=== PATIENT | male | born 1945 | race Caucasian/White ===

== ENCOUNTER 2022-04-14 09:59 | Inpatient (IN) | payer MEDICARE, BC ==
[2022-04-14] VITALS (15 sets, daily range): BP systolic 125–190; BP diastolic 65–105
[~2022-04-14] VITALS: Ht 185.4 cm; Wt 103.0 kg
[2022-04-14] MEDS ORDERED: diphenhydrAMINE 25mg capsule PO PRN (10:50)
[2022-04-14] MEDS ORDERED: SIMV-45 PO (11:00)
[2022-04-14] MEDS ORDERED: RIVA20TA PO (11:00)
[2022-04-14] MEDS ORDERED: VERA240C3 PO (11:00)
[2022-04-14] MEDS ORDERED: ALBU90AE INH (11:00)
[2022-04-14] MEDS ORDERED: LEVO50TA8 PO (11:00)
[2022-04-14 11:15] LABS: BASOPHILS # (AUTO) 0.1 X10'3 (0-0.2); BASOPHILS % (AUTO) 1.2 % (0-1); EOSINOPHILS # (AUTO) 0.4 X10'3 (0-0.9); EOSINOPHILS % (AUTO) 8.6 % (0-6); HEMATOCRIT 46.4 % (42.0-52.0); HEMOGLOBIN 15.6 g/dl (14.0-17.9); LYMPHOCYTES # (AUTO) 1.1 X10'3 (1.1-4.8); LYMPHOCYTES % (AUTO) 22.8 % (21-51); MEAN CORPUSCULAR HEMOGLOBIN 31.5 PG (27.0-31.0); MEAN CORPUSCULAR HGB CONC 33.6 g/dL (33.0-36.5); MEAN CORPUSCULAR VOLUME 93.7 FL (78-98); MEAN PLATELET VOLUME 7.8 FL (7.4-10.4); MONOCYTES # (AUTO) 0.3 X10'3 (0-0.9); MONOCYTES % (AUTO) 6.2 % (2-12); NEUTROPHILS # (AUTO) 3.1 X10'3 (1.8-7.7); NEUTROPHILS % (AUTO) 61.2 % (42-75); PLATELET COUNT 182 X10'3 (140-440); RED BLOOD COUNT 4.95 X10'6 (4.70-6.10); RED CELL DISTRIBUTION WIDTH 13.6 % (11.5-14.5)
[2022-04-14 11:18] LABS: ANION GAP 8 (8-16); BLOOD UREA NITROGEN 17 MG/DL (7-18); CALCIUM 9.2 MG/DL (8.5-10.1); CHLORIDE 106 MMOL/L (99-107); CREATININE 1.06 MG/DL (0.60-1.10); GLUCOSE 92 MG/DL (70-104); POTASSIUM 4.6 MMOL/L (3.5-5.1); SODIUM 140 MMOL/L (135-145); TOTAL CARBON DIOXIDE 26.5 MMOL/L (24-32); eGFR 68 ML/MIN
[2022-04-14] MEDS ORDERED: verapamil 2.5 mg/ml inj IV ONE (12:24)
[2022-04-14] MEDS ORDERED: nitroGLYCERIN-Tridil 50MG/D5W 250 ML IV ONE (12:24)
[2022-04-14] MEDS ORDERED: fentaNYL/PF 50MCG/1 ML 2ML syringe ONE (12:24)
[2022-04-14] MEDS ORDERED: midazolam 1 mg/ML 2ml injection ONE ×3 (12:24→21:44)
[2022-04-14] MEDS ORDERED: LIDOcaine 1% 30ml preserv. free vial ONE (12:25)
[2022-04-14] MEDS ORDERED: heparin 1,000unit/ml 10ml vial 10 ML ONE (12:25)
[2022-04-14] MEDS ORDERED: iohexol 350 MG/ML 50ML vial IV ONE ×2 (13:30→13:51)
[2022-04-14] MEDS ORDERED: clopidogrel 300mg tablet ONE (13:57)
[2022-04-14] MEDS ORDERED: HYDROcodone/acetaminophen 5mg/325mg tablet PO PRN (16:00)
--- NOTE | 2022-04-14 18:45 | NUR ---
Notified Dr. Hall patient in 09/04 pain to right groin and abdomen. Patient pale and diaphoretic. Groin site stable with no hematoma. Patient reports no flank pain. Blood glucose 112. New order for toradol 15mg IV once. Will continue to monitor patient. Addendum: 04/14/22 at 1920 by Tiffany Godoy RN Blood glucose 116.
[2022-04-14] MEDS ORDERED: ketorolac tromethamine 15mg/ml inj. IV ONE (18:50)
[2022-04-14] MEDS ORDERED: ondansetron/PF 4mg/2ml inj IV PRN ×2 (19:20→21:40)
--- NOTE | 2022-04-14 20:00 | NUR ---
Notified Dr. Hall that patient is still reporting pain 10/10 to right groin. No hematoma noted to procedure site. Right abdomen firm. New order for CT abdomen/pelvis with contrast. Patient vital signs stable. Will continue to monitor patient.
[2022-04-14] MEDS ORDERED: IOHEXOL 300 MG/ML 30ML INFUS..BTL IV ONE (20:11)
--- NOTE | 2022-04-14 20:45 | NUR ---
Dr. Hall present on short stay to evaluate patient and review CT images. Patient will go to OR with Dr. Souza for surgery SUMA. Patient BP 146/95 and HR in 100's
[2022-04-14] MEDS ORDERED: heparin 10,000 units/1 ML INJ ONE (21:35)
[2022-04-14] MEDS ORDERED: LIDOcaine 1% (10mg/ml) 2ml vial ONE ×2 (21:35→22:42)
[2022-04-14] MEDS ORDERED: meperidine/PF 25mg/ml syringe IV PRN ×3 (21:40)
[2022-04-14] MEDS ORDERED: morphine 4 MG/ML inj SYRINge IV PRN (21:40)
[2022-04-14] MEDS ORDERED: morphine 2 MG/ML inj. syringe IV PRN (21:40)
[2022-04-14] MEDS ORDERED: labetalol 20mg/4ml (5mg/ml) syringe IV PRN (21:40)
[2022-04-14] MEDS ORDERED: ringers solution, lacted 1,000 ML IV SCH (21:40)
[2022-04-14] MEDS ORDERED: proCHLORperazine 10 MG/2 ml inj IV PRN (21:40)
[2022-04-14] MEDS ORDERED: hydrALAZINE 20mg/ml inj. IV PRN (21:40)
--- NOTE | 2022-04-14 21:48 | NUR ---
Patient to OR.
[2022-04-14] MEDS ORDERED: dexamethasone sod phosphate 4mg/ml inj. ONE (21:50)
[2022-04-14] MEDS ORDERED: sevoflurane 250ml liquid IH ONE (21:50)
[2022-04-14] MEDS ORDERED: ondansetron/PF 4mg/2ml inj ONE (21:50)
[2022-04-14] MEDS ORDERED: fentaNYL /PF 50mcg/ml 5ml ampule ONE (22:29)
[2022-04-14] MEDS ORDERED: ceFAZolin 1000mg inj ONE ×3 (22:42)
[2022-04-14] MEDS ORDERED: LIDOcaine 2% (20mg/ml) 5ml vial ONE (22:42)
[2022-04-14] MEDS ORDERED: rocuronium 10mg/ml inj IV ONE (22:42)
[2022-04-14] MEDS ORDERED: phenylephrine 10mg/ml inj. ONE (22:42)
[2022-04-14] MEDS ORDERED: propofol inj 20 ML IV ONE (22:42)
[2022-04-14] MEDS ORDERED: FENTANYL CITRATE/D5W/PF 100 ML IV PRN (22:55)
[2022-04-14] MEDS ORDERED: fentaNYL/PF 50MCG/1 ML 2ML syringe IV PRN (22:55)
--- NOTE | 2022-04-14 23:16 | NUR ---
Report called to ALBERT Godinez in ICU. All questions answered.
--- NOTE | 2022-04-14 23:58 | NUR ---
Received from OR via BED , accompanied by Anesthesiologist DR EMERY and report given by Anesthesiolgist. ARTLINE LEFT WRIST, PIV LEFT 20G WITH LR @ 100, CL WITH PROPOFOL AT 10MCG/HR, RIGHT GROIN HAS KERLIK PACKING WITH INTERMITTENT RADHA, ABD AND TAPE, NICHOLS TO GRAVITY, CLEAR YELLOW URINE, SCD'S, VENTFIO2 101 AND PEEP OF 5, DOPPLER DORSAL PEDAL PULSES, TYLOENOL IV RUNNING. Addendum: 04/15/22 at 0029 by Natalie Corrigan RN Amended: Links added.
[2022-04-15] VITALS (41 sets, daily range): BP systolic 71–136; BP diastolic 44–79
[2022-04-15] MEDS: acetaminophen 1,000mg/100ml IV 100 ML IV PRN ×2 (00:02)
--- NOTE | 2022-04-15 00:28 | NUR ---
Report called to receiving nurse. Transferred via BED FROM THE OR Belongings [NO PERSONAL BELONINGS WITH PT. Special Issues communicated to receiving nurse MAC RN. PT IS SEDATED, NICHOLS TO GRAVITY, CL WITH PROPOFOL, PIV PATENT, NICHOLS TO GRAVITY, PT VENTED, VSS, DISTAL PEDAL PULSES WITH DOPPLER, SCD'S, PT MEETS DISCHARGE CRITERA.
[2022-04-15 00:30] LABS: ABG BASE EXCESS -8.3 mmol/L (-2.0-2.0); ABG HCO3 17.7 mmol/L (22.0-26.0); ABG OXYGEN SATURATION 99.5 % (94-97); ABG PCO2 (T) 35.2 mmHg (35.0-48.0); ABG PO2 (T) 452.6 mmHg (75.0-100.0); FCOHb 0.3 % (0.0-3.9); FMetHb 0.4 % (0.0-1.5); FO2Hb 98.8 % (94-97); PATIENT TEMPERATURE 35.3; PEEP 5 cm H2O; RESPIRATORY RATE 12 b/min; TIDAL VOLUME 600 mL; TOTAL HEMOGLOBIN 13.2 G/dl (14.0-18.0)
--- NOTE | 2022-04-15 01:00 | NUR ---
Called Dr. Carrera regarding tachycardia and hypotension. Unable to send labs due to unable to print labels. Per MD ok to transfuse 2 units without waiting for lab results.
[2022-04-15 01:47] LABS: BASOPHILS % (AUTO) 0.2 % (0-1); EOSINOPHILS % (AUTO) 0 % (0-6); HEMATOCRIT 33.1 % (42.0-52.0); HEMOGLOBIN 11.4 g/dl (14.0-17.9); LYMPHOCYTES # (AUTO) 0.6 X10'3 (1.1-4.8); LYMPHOCYTES % (AUTO) 6.6 % (21-51); MEAN CORPUSCULAR HEMOGLOBIN 32.7 PG (27.0-31.0); MEAN CORPUSCULAR HGB CONC 34.4 g/dL (33.0-36.5); MEAN CORPUSCULAR VOLUME 94.8 FL (78-98); MEAN PLATELET VOLUME 7.8 FL (7.4-10.4); MONOCYTES # (AUTO) 0.3 X10'3 (0-0.9); MONOCYTES % (AUTO) 3.2 % (2-12); NEUTROPHILS # (AUTO) 8.7 X10'3 (1.8-7.7); PLATELET COUNT 174 X10'3 (140-440); RED BLOOD COUNT 3.49 X10'6 (4.70-6.10); RED CELL DISTRIBUTION WIDTH 13.5 % (11.5-14.5); WHITE BLOOD COUNT 9.7 X10'3 (4.5-11.0)
[2022-04-15] MEDS: propofol 1000mg/100ml bottle 100 ML IV SCH ×3 (02:01→15:05)
[2022-04-15] MEDS: cefazolin/dext.iso 2gm/100ml 100 ML IV SCH ×4 (02:02→20:27)
[2022-04-15 02:04] LABS: ALANINE AMINOTRANSFERASE 18 U/L (12-78); ALBUMIN 2.8 G/DL (3.4-5.0); ALBUMIN/GLOBULIN RATIO 1.1 (1.1-1.5); ALKALINE PHOSPHATASE 49 IU/L (46-116); ANION GAP 12 (8-16); ASPARTATE AMINO TRANSFERASE 13 U/L (10-37); BILIRUBIN,TOTAL 0.5 MG/DL (0.1-1.0); BLOOD UREA NITROGEN 20 MG/DL (7-18); BUN/CREATININE RATIO 13.9 (5.4-32.0); CALCIUM 7.8 MG/DL (8.5-10.1); CHLORIDE 107 MMOL/L (99-107); CREATININE 1.44 MG/DL (0.60-1.10); GLUCOSE 216 MG/DL (70-104); MAGNESIUM 1.8 MG/DL (1.5-2.4); PHOSPHORUS 4.5 MG/DL (2.3-4.5); POTASSIUM 4.9 MMOL/L (3.5-5.1); SODIUM 137 MMOL/L (135-145); TOTAL CARBON DIOXIDE 18.4 MMOL/L (24-32); TOTAL PROTEIN 5.4 G/DL (6.4-8.2); TRIGLYCERIDES 96 MG/DL (20-135); eGFR 48 ML/MIN
[2022-04-15 02:45] LABS: ABG BASE EXCESS -8.1 mmol/L (-2.0-2.0); ABG OXYGEN SATURATION 97.5 % (94-97); ABG PCO2 (T) 27.8 mmHg (35.0-48.0); ABG PO2 (T) 101.6 mmHg (75.0-100.0); FCOHb 0.3 % (0.0-3.9); FMetHb 0.3 % (0.0-1.5); FO2Hb 96.9 % (94-97); PATIENT TEMPERATURE 36.3; PEEP 5 cm H2O; RESPIRATORY RATE 12 b/min; TIDAL VOLUME 600 mL; TOTAL HEMOGLOBIN 12.5 G/dl (14.0-18.0)
[2022-04-15] MEDS ORDERED: cefazolin/dext.iso 2gm/100ml 100 ML IV SCH (04:00)
[2022-04-15] MEDS: normal saline 1000ml 1,000 ML IV SCH ×2 (06:28→14:47)
[2022-04-15 07:41] LABS: BASOPHILS % (AUTO) 0.3 % (0-1); EOSINOPHILS % (AUTO) 0.1 % (0-6); HEMATOCRIT 38.2 % (42.0-52.0); HEMOGLOBIN 12.9 g/dl (14.0-17.9); LYMPHOCYTES # (AUTO) 0.6 X10'3 (1.1-4.8); LYMPHOCYTES % (AUTO) 4.6 % (21-51); MEAN CORPUSCULAR HEMOGLOBIN 31.5 PG (27.0-31.0); MEAN CORPUSCULAR HGB CONC 33.8 g/dL (33.0-36.5); MEAN CORPUSCULAR VOLUME 93.1 FL (78-98); MEAN PLATELET VOLUME 7.8 FL (7.4-10.4); MONOCYTES # (AUTO) 0.5 X10'3 (0-0.9); MONOCYTES % (AUTO) 3.9 % (2-12); NEUTROPHILS # (AUTO) 11.7 X10'3 (1.8-7.7); NEUTROPHILS % (AUTO) 91.1 % (42-75); PLATELET COUNT 145 X10'3 (140-440); RED CELL DISTRIBUTION WIDTH 14.4 % (11.5-14.5); WHITE BLOOD COUNT 12.9 X10'3 (4.5-11.0)
[2022-04-15 07:49] LABS: APTT 26 SECONDS (22-32)
[2022-04-15 07:50] LABS: ALANINE AMINOTRANSFERASE 18 U/L (12-78); ALBUMIN 2.8 G/DL (3.4-5.0); ALKALINE PHOSPHATASE 46 IU/L (46-116); ANION GAP 9 (8-16); ASPARTATE AMINO TRANSFERASE 15 U/L (10-37); BILIRUBIN,TOTAL 0.7 MG/DL (0.1-1.0); BLOOD UREA NITROGEN 21 MG/DL (7-18); BUN/CREATININE RATIO 14.2 (5.4-32.0); CALCIUM 7.4 MG/DL (8.5-10.1); CHLORIDE 109 MMOL/L (99-107); CREATININE 1.48 MG/DL (0.60-1.10); GLUCOSE 163 MG/DL (70-104); MAGNESIUM 1.9 MG/DL (1.5-2.4); PHOSPHORUS 3.1 MG/DL (2.3-4.5); POTASSIUM 4.8 MMOL/L (3.5-5.1); SODIUM 141 MMOL/L (135-145); TOTAL CARBON DIOXIDE 23.5 MMOL/L (24-32); TOTAL PROTEIN 5.6 G/DL (6.4-8.2); eGFR 46 ML/MIN
--- NOTE | 2022-04-15 08:40 | NUR ---
Dr. Souza here updated on pt condition, labs and urine output. pt will probably go back to OR on Sunday
[2022-04-15] MEDS ORDERED: potassium Cl 20mEq/100mL bag 100 ML IV PRN (09:10)
[2022-04-15] MEDS ORDERED: magnesium Cl slow-release 64mg tablet PO PRN (09:10)
[2022-04-15] MEDS ORDERED: magnesium 2GM in 50ml NS 50 ML IV PRN (09:10)
[2022-04-15] MEDS ORDERED: POTASSIUM BICARB 20meq eff tab 20 MEQ TABLET.EFF PO PRN ×2 (09:10)
[2022-04-15] MEDS ORDERED: magnesium 4gm in 100ml NS 100 ML IV PRN (09:10)
[2022-04-15 09:57] LABS: CLARITY,URINE CLEAR (Clear); COLOR,URINE YELLOW (Yellow); GLUCOSE, URINE NEGATIVE (Neg); KETONES,URINE NEGATIVE (Neg); LEUKOCYTE ESTERASE ,URINE NEGATIVE (Neg); NITRITES, URINE NEGATIVE (Neg); OCCULT BLOOD,URINE LARGE (Neg); PROTEIN,URINE TRACE mg/dl (Neg); UROBILINOGEN,URINE 0.2 E.U/dL (0.2-1.0)
[2022-04-15 10:02] LABS: UA COLLECTION TYPE NON-SPECIFIED
[2022-04-15 10:03] LABS: BACTERIA,URINE NONE SEEN /HPF (Neg); MUCUS STRANDS NONE SEEN /LPF (Neg); RBC,URINE 20-50 /HPF (0-2); SQUAMOUS EPITHELIAL CELL,UR NONE SEEN /LPF (FEW); WBC,URINE 0-4 /HPF (0-4)
--- NOTE | 2022-04-15 10:04 | NUR ---
Initial: Pt intubated s/p L heart cardiac cath w/ stent going to OR today for R femoral artery repair per EMR. Pt NPO receiving Propofol at 8.919ml/hr providing 235 kcals/day per EMR. If prolonged intubation post-op would benefit from EN to meet nutrition needs. Will continue to monitor for further nutrition intervention needs this admit. Rec: 1. Consider EN if prolonged intubation post-op 2. upon extubation; advance diet as medically indicated to heart healthy 3. routine bowel care 4. weekly wts Addendum: 04/15/22 at [address] Amended: Links added.
[2022-04-15] MEDS: dextrose 5%-water 1,000 ML IV SCH (10:50)
[2022-04-15] MEDS: dexmedetomidin/NS 400mcg/100ml 100 ML IV SCH ×3 (10:52→19:46)
--- NOTE | 2022-04-15 11:24 | NUR ---
at bedside attempting to help keep pt calm. he gets very anxiuos and restless. reaching for ETT and attempting to get oob. Precedex started and titrating down the Diprivan
--- NOTE | 2022-04-15 12:34 | NUR ---
Dr. Ruiz notified of continued hypotension despite turning sedation down. Says he will order albumin and then levo if needed. Send 1500 labs now.
[2022-04-15] MEDS ORDERED: NORepinephrine inj. 8 MG in dextrose 5%-water 242 ML IV SCH (12:40)
[2022-04-15] MEDS ORDERED: albumin (Human) 5% 250ml 250 ML IV ONE ×3 (12:40→12:45)
[2022-04-15 13:06] LABS: BASOPHILS % (AUTO) 0.1 % (0-1); EOSINOPHILS % (AUTO) 0 % (0-6); HEMATOCRIT 31.3 % (42.0-52.0); HEMOGLOBIN 10.6 g/dl (14.0-17.9); LYMPHOCYTES # (AUTO) 0.6 X10'3 (1.1-4.8); LYMPHOCYTES % (AUTO) 4.2 % (21-51); MEAN CORPUSCULAR HEMOGLOBIN 31.1 PG (27.0-31.0); MEAN CORPUSCULAR HGB CONC 33.8 g/dL (33.0-36.5); MEAN CORPUSCULAR VOLUME 91.9 FL (78-98); MEAN PLATELET VOLUME 7.9 FL (7.4-10.4); MONOCYTES # (AUTO) 0.7 X10'3 (0-0.9); MONOCYTES % (AUTO) 5.4 % (2-12); NEUTROPHILS # (AUTO) 11.8 X10'3 (1.8-7.7); NEUTROPHILS % (AUTO) 90.3 % (42-75); PLATELET COUNT 121 X10'3 (140-440); RED BLOOD COUNT 3.41 X10'6 (4.70-6.10); RED CELL DISTRIBUTION WIDTH 14.7 % (11.5-14.5)
[2022-04-15 13:25] LABS: ALANINE AMINOTRANSFERASE 14 U/L (12-78); ALBUMIN 2.3 G/DL (3.4-5.0); ANION GAP 5 (8-16); ASPARTATE AMINO TRANSFERASE 12 U/L (10-37); BILIRUBIN,TOTAL 0.4 MG/DL (0.1-1.0); BLOOD UREA NITROGEN 25 MG/DL (7-18); CALCIUM 6.7 MG/DL (8.5-10.1); CHLORIDE 110 MMOL/L (99-107); CREATININE 1.47 MG/DL (0.60-1.10); GLUCOSE 164 MG/DL (70-104); POTASSIUM 4.5 MMOL/L (3.5-5.1); SODIUM 137 MMOL/L (135-145); TOTAL CARBON DIOXIDE 21.6 MMOL/L (24-32); TOTAL PROTEIN 4.5 G/DL (6.4-8.2); eGFR 47 ML/MIN
[2022-04-15 13:30] LABS: ALKALINE PHOSPHATASE 37 IU/L (46-116)
[2022-04-15] MEDS: NORepinephrine 8mg/ 250ml NS 250 ML IV SCH (13:34)
[2022-04-15] MEDS ORDERED: clopidogrel 75mg tablet PO SCH (14:00)
[2022-04-15] MEDS ORDERED: enoxaparin 100mg/ml syringe SUBCUT ONE (14:00)
[2022-04-15] MEDS ORDERED: FENTANYL-0.9 % NACL/PF 100 ML IV PRN (16:05)
--- NOTE | 2022-04-15 17:45 | NUR ---
Notified that his glucose has been > 160 x 2. Not on insulin. said as long as he is less than 180 he is OK with that and to leave the D5 @ 50ml/hr.
[2022-04-16] VITALS (33 sets, daily range): BP systolic 89–130; BP diastolic 42–70
[2022-04-16] MEDS: dexmedetomidin/NS 400mcg/100ml 100 ML IV SCH ×3 (00:11→07:57)
[2022-04-16] MEDS: normal saline 1000ml 1,000 ML IV SCH ×3 (00:19→21:51)
[2022-04-16] MEDS: mineral oil/petrolatum ophthal oint EACHEYE SCH ×2 (01:46→07:24)
[2022-04-16] MEDS: cefazolin/dext.iso 2gm/100ml 100 ML IV SCH ×4 (02:00→20:10)
[2022-04-16 02:05] LABS: BASOPHILS % (AUTO) 0.2 % (0-1); EOSINOPHILS % (AUTO) 0 % (0-6); HEMATOCRIT 29.9 % (42.0-52.0); HEMOGLOBIN 10.2 g/dl (14.0-17.9); LYMPHOCYTES # (AUTO) 0.6 X10'3 (1.1-4.8); LYMPHOCYTES % (AUTO) 5.7 % (21-51); MEAN CORPUSCULAR HEMOGLOBIN 31.4 PG (27.0-31.0); MEAN CORPUSCULAR HGB CONC 34.1 g/dL (33.0-36.5); MEAN CORPUSCULAR VOLUME 92.3 FL (78-98); MEAN PLATELET VOLUME 7.9 FL (7.4-10.4); MONOCYTES # (AUTO) 0.8 X10'3 (0-0.9); MONOCYTES % (AUTO) 7.4 % (2-12); NEUTROPHILS # (AUTO) 9.7 X10'3 (1.8-7.7); NEUTROPHILS % (AUTO) 86.7 % (42-75); PLATELET COUNT 123 X10'3 (140-440); RED BLOOD COUNT 3.24 X10'6 (4.70-6.10); RED CELL DISTRIBUTION WIDTH 14.2 % (11.5-14.5); WHITE BLOOD COUNT 11.2 X10'3 (4.5-11.0)
--- NOTE | 2022-04-16 02:15 | NUR ---
Hutson order entered 04/[address] Ruiz. I had spoken to him earlier in the day when I first came on and got the verbal order for a hutson but I forgot to put the order in. WHen I went to put it in this AM it wouldn't let me back date it to the time I originally recieved the order (04/15 1300).
[2022-04-16 02:16] LABS: ALANINE AMINOTRANSFERASE 13 U/L (12-78); ALBUMIN 2.9 G/DL (3.4-5.0); ALBUMIN/GLOBULIN RATIO 1.2 (1.1-1.5); ALKALINE PHOSPHATASE 34 IU/L (46-116); ANION GAP 7 (8-16); ASPARTATE AMINO TRANSFERASE 12 U/L (10-37); BILIRUBIN,TOTAL 0.3 MG/DL (0.1-1.0); BLOOD UREA NITROGEN 24 MG/DL (7-18); CALCIUM 7.1 MG/DL (8.5-10.1); CHLORIDE 109 MMOL/L (99-107); CREATININE 0.96 MG/DL (0.60-1.10); GLUCOSE 159 MG/DL (70-104); MAGNESIUM 1.7 MG/DL (1.5-2.4); PHOSPHORUS 2.7 MG/DL (2.3-4.5); POTASSIUM 4.4 MMOL/L (3.5-5.1); SODIUM 138 MMOL/L (135-145); TOTAL CARBON DIOXIDE 21.8 MMOL/L (24-32); TOTAL PROTEIN 5.3 G/DL (6.4-8.2); eGFR 76 ML/MIN
[2022-04-16 02:20] LABS: APTT 30 SECONDS (22-32)
[2022-04-16 02:26] LABS: CREATININE 0.96 MG/DL (0.60-1.10)
[2022-04-16] MEDS: NORepinephrine 8mg/ 250ml NS 250 ML IV SCH ×2 (02:28→15:56)
[2022-04-16] MEDS: dextrose 5%-water 1,000 ML IV SCH ×2 (03:07→22:54)
[2022-04-16 03:42] LABS: ABG BASE EXCESS -6.2 mmol/L (-2.0-2.0); ABG HCO3 18.5 mmol/L (22.0-26.0); ABG OXYGEN SATURATION 95.3 % (94-97); ABG PCO2 (T) 33.1 mmHg (35.0-48.0); ABG PO2 (T) 69.8 mmHg (75.0-100.0); FCOHb 0.3 % (0.0-3.9); FMetHb 0.3 % (0.0-1.5); FO2Hb 94.7 % (94-97); PATIENT TEMPERATURE 36.5; PEEP 5 cm H2O; RESPIRATORY RATE 12 b/min; TIDAL VOLUME 600 mL; TOTAL HEMOGLOBIN 11.7 G/dl (14.0-18.0)
[2022-04-16] MEDS: pantoprazole 40MG/NS 100ML BAG 100 ML IV SCH (07:23)
[2022-04-16] MEDS ORDERED: FENTANYL-0.9 % NACL/PF 100 ML IV PRN (07:23)
[2022-04-16] MEDS: K and/or MAG REPLACEMENT MC SCH (07:23)
[2022-04-16] MEDS ORDERED: dexmedetomidin/NS 400mcg/100mL BOTTLE IV ONE (07:54)
[2022-04-16] MEDS ORDERED: NORepinephrine 8 MG in NS 250 ML BAG (32 mcg/ml) IV ONE (07:54)
[2022-04-16] MEDS ORDERED: sevoflurane 250ml liquid IH ONE (07:54)
--- NOTE | 2022-04-16 08:06 | NUR ---
Pt. to OR.
--- NOTE | 2022-04-16 09:00 | NUR ---
Pt. back from OR. Provena to right groin inc.
--- NOTE | 2022-04-16 10:12 | NUR ---
at bedside. Weaning parameters being obtained now.
--- NOTE | 2022-04-16 10:15 | NUR ---
RN notified Dr. Ruiz that Dr. Amaro stated to extuabte pt. CXR to be obtained per Dr. Ruiz prior to extubation.
[2022-04-16] MEDS ORDERED: albumin (Human) 5% 250ml 250 ML IV ONE ×3 (11:25→21:15)
--- NOTE | 2022-04-16 11:34 | NUR ---
Attempting to wean/dc Levo. Albumin ordered and infusing per Dr. Ruiz. Will order and administer Midrodrine if BP still low after Albumin.
[2022-04-16] MEDS: midodrine 5mg tablet PO SCH ×2 (13:15→16:10)
[2022-04-16] MEDS ORDERED: clopidogrel 75mg tablet PO ONE (14:00)
[2022-04-16] MEDS: atorvastatin 20mg tablet PO SCH (14:38)
--- NOTE | 2022-04-16 14:43 | NUR ---
RN asked Dr. Garcia about an antiplatelet med. Noted there was a one-time Plavix administered yesterday. Orders received to start daily Plavix and Lipitor.
[2022-04-16] MEDS ORDERED: midodrine 5mg tablet PO ONE (21:15)
[2022-04-17] VITALS (12 sets, daily range): BP systolic 97–145; BP diastolic 48–72
[2022-04-17] MEDS: normal saline 1000ml 1,000 ML IV SCH ×2 (01:23→17:45)
[2022-04-17 02:03] LABS: BASOPHILS % (AUTO) 0.5 % (0-1); EOSINOPHILS % (AUTO) 0.2 % (0-6); HEMOGLOBIN 8.9 g/dl (14.0-17.9); LYMPHOCYTES # (AUTO) 0.9 X10'3 (1.1-4.8); LYMPHOCYTES % (AUTO) 11.8 % (21-51); MEAN CORPUSCULAR HEMOGLOBIN 31.4 PG (27.0-31.0); MEAN CORPUSCULAR HGB CONC 34.2 g/dL (33.0-36.5); MEAN CORPUSCULAR VOLUME 91.8 FL (78-98); MEAN PLATELET VOLUME 8.1 FL (7.4-10.4); MONOCYTES # (AUTO) 0.5 X10'3 (0-0.9); MONOCYTES % (AUTO) 6.3 % (2-12); NEUTROPHILS % (AUTO) 81.2 % (42-75); PLATELET COUNT 106 X10'3 (140-440); RED BLOOD COUNT 2.83 X10'6 (4.70-6.10); RED CELL DISTRIBUTION WIDTH 14.3 % (11.5-14.5); WHITE BLOOD COUNT 7.3 X10'3 (4.5-11.0)
[2022-04-17 02:04] LABS: APTT 28 SECONDS (22-32)
[2022-04-17 02:05] LABS: ALANINE AMINOTRANSFERASE 9 U/L (12-78); ALBUMIN 3.3 G/DL (3.4-5.0); ALBUMIN/GLOBULIN RATIO 1.4 (1.1-1.5); ALKALINE PHOSPHATASE 34 IU/L (46-116); ANION GAP 8 (8-16); ASPARTATE AMINO TRANSFERASE 13 U/L (10-37); BILIRUBIN,TOTAL 0.4 MG/DL (0.1-1.0); BLOOD UREA NITROGEN 22 MG/DL (7-18); BUN/CREATININE RATIO 23.4 (5.4-32.0); CALCIUM 7.7 MG/DL (8.5-10.1); CHLORIDE 108 MMOL/L (99-107); CREATININE 0.94 MG/DL (0.60-1.10); GLUCOSE 105 MG/DL (70-104); MAGNESIUM 1.9 MG/DL (1.5-2.4); PHOSPHORUS 1.6 MG/DL (2.3-4.5); POTASSIUM 3.7 MMOL/L (3.5-5.1); SODIUM 141 MMOL/L (135-145); TOTAL CARBON DIOXIDE 25.4 MMOL/L (24-32); TOTAL PROTEIN 5.6 G/DL (6.4-8.2); eGFR 78 ML/MIN
[2022-04-17] MEDS: cefazolin/dext.iso 2gm/100ml 100 ML IV SCH ×4 (02:17→20:00)
--- NOTE | 2022-04-17 04:19 | NUR ---
Spoke with Dr. Ruiz around 2100 regarding patient requiring levo drip again for MAP <60. MD gave verbal order for 10mg midodrine p.ox1, 500 cc 5% albumin, and change scheduled midodrine to 10mg q8hour. Eventually, pt came off levo and a-line was d/c. Monitoring BP q15min due to frequent changes in BP.
[2022-04-17] MEDS: NORepinephrine 8mg/ 250ml NS 250 ML IV SCH (04:46)
[2022-04-17] MEDS ORDERED: potassium phosphate inj 15 MMOL in normal saline 250ml IV soln 250 ML IV ONE (05:45)
[2022-04-17] MEDS: pantoprazole 40MG/NS 100ML BAG 100 ML IV SCH (07:19)
[2022-04-17] MEDS: clopidogrel 75mg tablet PO SCH (07:25)
[2022-04-17] MEDS: midodrine 5mg tablet PO SCH ×3 (07:26→16:00)
[2022-04-17] MEDS: atorvastatin 20mg tablet PO SCH (07:26)
[2022-04-17] MEDS: aspirin 81mg, enteric-coated 1 TAB TABLET.DR PO SCH (07:27)
[2022-04-17] MEDS: K and/or MAG REPLACEMENT MC SCH (07:36)
[2022-04-17] MEDS ORDERED: aspirin 325mg tablet PO SCH (08:30)
--- NOTE | 2022-04-17 09:19 | NUR ---
Dr. Hall in to see pt.
--- NOTE | 2022-04-17 09:42 | NUR ---
Report called to Ramiro on PCU. Awaiting tele monitor and will transfer pt. in bed.
--- NOTE | 2022-04-17 10:08 | NUR ---
Pt. to 3026A via bed with all belongings in stable condition. at bedside. [employer] Set Up Operator Cali aware of pt. arrival.
[2022-04-17] MEDS ORDERED: albuterol 2.5 MG/3 ML nebule NEB PRN (12:10)
[2022-04-17] MEDS: dextrose 5%-water 1,000 ML IV SCH (19:20)
[2022-04-17] MEDS ORDERED: enoxaparin 40mg/0.4ml syringe SUBCUT SCH (20:00)
[2022-04-18 02:00] VITALS: BP 138/67
[2022-04-18] MEDS: cefazolin/dext.iso 2gm/100ml 100 ML IV SCH ×4 (02:15→20:47)
[2022-04-18 06:00] VITALS: BP 128/80
[2022-04-18 06:42] LABS: POTASSIUM 3.7 MMOL/L (3.5-5.1)
--- NOTE | 2022-04-18 06:52 | NUR ---
Patient in room PCU 3026. I have received report from ALBERT Siddiqui and had the opportunity to ask questions and assume patient care.
[2022-04-18 07:31] LABS: BASOPHILS # (AUTO) 0.1 X10'3 (0-0.2); BASOPHILS % (AUTO) 0.6 % (0-1); EOSINOPHILS # (AUTO) 0.2 X10'3 (0-0.9); EOSINOPHILS % (AUTO) 2.2 % (0-6); HEMATOCRIT 29.2 % (42.0-52.0); LYMPHOCYTES % (AUTO) 12.6 % (21-51); MEAN CORPUSCULAR HEMOGLOBIN 32.2 PG (27.0-31.0); MEAN CORPUSCULAR HGB CONC 34.4 g/dL (33.0-36.5); MEAN CORPUSCULAR VOLUME 93.7 FL (78-98); MEAN PLATELET VOLUME 7.5 FL (7.4-10.4); MONOCYTES # (AUTO) 0.5 X10'3 (0-0.9); MONOCYTES % (AUTO) 6.5 % (2-12); NEUTROPHILS # (AUTO) 6.4 X10'3 (1.8-7.7); NEUTROPHILS % (AUTO) 78.1 % (42-75); PLATELET COUNT 140 X10'3 (140-440); RED BLOOD COUNT 3.12 X10'6 (4.70-6.10); RED CELL DISTRIBUTION WIDTH 14.1 % (11.5-14.5); WHITE BLOOD COUNT 8.2 X10'3 (4.5-11.0)
[2022-04-18 07:58] LABS: ALBUMIN 3.1 G/DL (3.4-5.0); ANION GAP 9 (8-16); BLOOD UREA NITROGEN 13 MG/DL (7-18); BUN/CREATININE RATIO 13.1 (5.4-32.0); CALCIUM 8.2 MG/DL (8.5-10.1); CHLORIDE 108 MMOL/L (99-107); CREATININE 0.99 MG/DL (0.60-1.10); GLUCOSE 101 MG/DL (70-104); SODIUM 141 MMOL/L (135-145); eGFR 74 ML/MIN
[2022-04-18] MEDS: K and/or MAG REPLACEMENT MC SCH (08:00)
[2022-04-18] MEDS ORDERED: atorvastatin 20mg tablet PO SCH (08:00)
--- NOTE | 2022-04-18 08:42 | NUR ---
Orders to DC Lovenox put in per Dr. Hall.
[2022-04-18] MEDS: atorvastatin 20mg tablet PO SCH (10:16)
[2022-04-18] MEDS: pantoprazole 40mg Tablet.DR PO SCH (10:17)
[2022-04-18] MEDS: midodrine 5mg tablet PO SCH ×3 (10:17→16:48)
[2022-04-18] MEDS: verapamil SR 120mg (sust. release) tab PO SCH (10:17)
[2022-04-18] MEDS: clopidogrel 75mg tablet PO SCH (10:18)
[2022-04-18] MEDS: levoTHYROXINE 25mcg tablet PO SCH (10:18)
[2022-04-18] MEDS: aspirin 81mg, enteric-coated 1 TAB TABLET.DR PO SCH (10:27)
[2022-04-18] MEDS: normal saline 1000ml 1,000 ML IV SCH ×3 (10:27→20:45)
[2022-04-18 11:00] VITALS: BP 106/76
[2022-04-18 15:00] VITALS: BP 114/58
[2022-04-18] MEDS: dextrose 5%-water 1,000 ML IV SCH (17:10)
[2022-04-18] MEDS ORDERED: dextrose 50%-water 50ml dispensing syringe IV PRN ×2 (17:15)
[2022-04-18] MEDS ORDERED: MESSAGE TO PHARMACY PO ONE (17:15)
[2022-04-18] MEDS ORDERED: DEXTROSE 15 GM of carb/4 tabs (each vial/BOTTLE has 4 tablets) PO PRN ×2 (17:15)
[2022-04-18] MEDS ORDERED: insulin Lispro (HumaLOG) vial - multi-dose SQ SCH (17:15)
[2022-04-18] MEDS ORDERED: glucagon, human recombinant 1mg kit SUBCUT PRN (17:15)
[2022-04-18 18:00] VITALS: BP 136/60
[2022-04-18 18:03] LABS: HEMOGLOBIN A1C 5.4 % (4.5-6.2)
[2022-04-18] MEDS: rivaroxaban 20mg tablet PO SCH (18:03)
--- NOTE | 2022-04-18 18:42 | NUR ---
Patient in room PCU 3026. I have received report from GONZÁLEZ PRICE and had the opportunity to ask questions and assume patient care.
[2022-04-18] MEDS: insulin glargine (Lantus) pen - multi-dose SQ SCH (21:00)
[2022-04-18 22:00] VITALS: BP 124/58
[2022-04-19] VITALS (7 sets, daily range): BP systolic 101–142; BP diastolic 55–86
[2022-04-19] MEDS: cefazolin/dext.iso 2gm/100ml 100 ML IV SCH ×4 (02:19→20:27)
[2022-04-19 06:07] LABS: POTASSIUM 4.2 MMOL/L (3.5-5.1)
--- NOTE | 2022-04-19 06:07 | NUR ---
Problems reprioritized. Patient report given, questions answered & plan of care reviewed with pavan rn .
--- NOTE | 2022-04-19 06:30 | NUR ---
Patient in room PCU 3026. I have received report from ALBERT Nguyen and had the opportunity to ask questions and assume patient care.
[2022-04-19 08:40] LABS: BASOPHILS % (AUTO) 0.6 % (0-1); EOSINOPHILS # (AUTO) 0.3 X10'3 (0-0.9); EOSINOPHILS % (AUTO) 4.5 % (0-6); HEMATOCRIT 27.9 % (42.0-52.0); HEMOGLOBIN 9.5 g/dl (14.0-17.9); LYMPHOCYTES # (AUTO) 1.1 X10'3 (1.1-4.8); LYMPHOCYTES % (AUTO) 14.5 % (21-51); MEAN CORPUSCULAR HEMOGLOBIN 31.6 PG (27.0-31.0); MEAN CORPUSCULAR HGB CONC 33.9 g/dL (33.0-36.5); MEAN CORPUSCULAR VOLUME 93.1 FL (78-98); MEAN PLATELET VOLUME 7.9 FL (7.4-10.4); MONOCYTES # (AUTO) 0.6 X10'3 (0-0.9); MONOCYTES % (AUTO) 7.5 % (2-12); NEUTROPHILS # (AUTO) 5.5 X10'3 (1.8-7.7); NEUTROPHILS % (AUTO) 72.9 % (42-75); PLATELET COUNT 171 X10'3 (140-440); RED CELL DISTRIBUTION WIDTH 13.8 % (11.5-14.5); WHITE BLOOD COUNT 7.5 X10'3 (4.5-11.0)
[2022-04-19 08:46] LABS: ALBUMIN 2.8 G/DL (3.4-5.0); ANION GAP 9 (8-16); BLOOD UREA NITROGEN 21 MG/DL (7-18); BUN/CREATININE RATIO 21.6 (5.4-32.0); CALCIUM 8.3 MG/DL (8.5-10.1); CHLORIDE 109 MMOL/L (99-107); CREATININE 0.97 MG/DL (0.60-1.10); GLUCOSE 103 MG/DL (70-104); SODIUM 141 MMOL/L (135-145); TOTAL CARBON DIOXIDE 23.2 MMOL/L (24-32); eGFR 75 ML/MIN
[2022-04-19] MEDS: levoTHYROXINE 25mcg tablet PO SCH (09:31)
[2022-04-19] MEDS: midodrine 5mg tablet PO SCH ×3 (09:32→15:39)
[2022-04-19] MEDS: aspirin 81mg, enteric-coated 1 TAB TABLET.DR PO SCH (09:32)
[2022-04-19] MEDS: clopidogrel 75mg tablet PO SCH (09:32)
[2022-04-19] MEDS: verapamil SR 120mg (sust. release) tab PO SCH (09:33)
[2022-04-19] MEDS: pantoprazole 40mg Tablet.DR PO SCH (09:33)
[2022-04-19] MEDS: atorvastatin 20mg tablet PO SCH (09:33)
[2022-04-19] MEDS: dextrose 5%-water 1,000 ML IV SCH (13:10)
--- NOTE | 2022-04-19 13:23 | NUR ---
Reassessment: Per EMR pt extubated 04/16. Diet has been advanced to heart healthy though PO intake is poor with average 38% PO intake not meeting estimated nutrient needs. Attempted visit with pt at bedside however pt sleeping therefore information was obtained from patient's SO. Patient's SO states pt does not have any food allergies or difficulty chewing or swallowing. Food preferences were obtained and d/w dietary, see below. Noted pt with no BM since admit. Patient's SO hopeful that pt will have a BM once able to move around more. In the mean time agrees to prunes and raisins, d/w dietary. Pt would benefit from routine bowel care for bowel regularity. RD discussed the importance of nutrition and provided pt/SO with RD contact information and encouraged them to reach out if needed. Will continue to follow closely. Recommendations: 1. Continue heart healthy diet; liberalize to regular diet if PO intake does not improve 2. Carriere food preferences: fruit TID, salad BIDLD; no milk to drink, sub orange juice or apple juice 3. Consider ONS if PO intake does not improve 4. Routine bowel care 5. Weekly scaled weights Addendum: 04/19/22 at [address] Amended: Links added.
[2022-04-19] MEDS: normal saline 1000ml 1,000 ML IV SCH ×2 (16:00→19:45)
[2022-04-19] MEDS: rivaroxaban 20mg tablet PO SCH (17:46)
--- NOTE | 2022-04-19 18:43 | NUR ---
Patient in room PCU 3026. I have received report from GONZÁLEZ PRICE and had the opportunity to ask questions and assume patient care.
[2022-04-19] MEDS: insulin glargine (Lantus) pen - multi-dose SQ SCH (21:00)
[2022-04-20 02:00] VITALS: BP 129/50
[2022-04-20] MEDS: normal saline 1000ml 1,000 ML IV SCH (02:44)
[2022-04-20] MEDS: cefazolin/dext.iso 2gm/100ml 100 ML IV SCH ×2 (02:44→08:00)
[2022-04-20 06:28] LABS: POTASSIUM 3.7 MMOL/L (3.5-5.1)
--- NOTE | 2022-04-20 06:32 | NUR ---
Problems reprioritized. Patient report given, questions answered & plan of care reviewed with GONZÁLEZ RN.
[2022-04-20 07:00] VITALS: BP 140/72
[2022-04-20 07:59] LABS: BASOPHILS % (AUTO) 0.5 % (0-1); EOSINOPHILS # (AUTO) 0.4 X10'3 (0-0.9); EOSINOPHILS % (AUTO) 5.8 % (0-6); HEMATOCRIT 28.3 % (42.0-52.0); HEMOGLOBIN 9.8 g/dl (14.0-17.9); LYMPHOCYTES # (AUTO) 0.9 X10'3 (1.1-4.8); MEAN CORPUSCULAR HEMOGLOBIN 32.3 PG (27.0-31.0); MEAN CORPUSCULAR HGB CONC 34.7 g/dL (33.0-36.5); MEAN CORPUSCULAR VOLUME 93.1 FL (78-98); MEAN PLATELET VOLUME 7.8 FL (7.4-10.4); MONOCYTES # (AUTO) 0.7 X10'3 (0-0.9); MONOCYTES % (AUTO) 9.3 % (2-12); NEUTROPHILS # (AUTO) 5.1 X10'3 (1.8-7.7); NEUTROPHILS % (AUTO) 71.4 % (42-75); PLATELET COUNT 188 X10'3 (140-440); RED BLOOD COUNT 3.04 X10'6 (4.70-6.10); RED CELL DISTRIBUTION WIDTH 13.9 % (11.5-14.5); WHITE BLOOD COUNT 7.2 X10'3 (4.5-11.0)
[2022-04-20 08:14] LABS: ALBUMIN 2.8 G/DL (3.4-5.0); ANION GAP 10 (8-16); BLOOD UREA NITROGEN 20 MG/DL (7-18); BUN/CREATININE RATIO 20.4 (5.4-32.0); CALCIUM 8.1 MG/DL (8.5-10.1); CHLORIDE 107 MMOL/L (99-107); CREATININE 0.98 MG/DL (0.60-1.10); GLUCOSE 103 MG/DL (70-104); SODIUM 138 MMOL/L (135-145); TOTAL CARBON DIOXIDE 21.5 MMOL/L (24-32); eGFR 75 ML/MIN
[2022-04-20] MEDS: dextrose 5%-water 1,000 ML IV SCH (09:10)
[2022-04-20] MEDS: aspirin 81mg, enteric-coated 1 TAB TABLET.DR PO SCH (10:24)
[2022-04-20] MEDS: midodrine 5mg tablet PO SCH ×2 (10:24→12:00)
[2022-04-20] MEDS: levoTHYROXINE 25mcg tablet PO SCH (10:25)
[2022-04-20] MEDS: atorvastatin 20mg tablet PO SCH (10:25)
[2022-04-20] MEDS: clopidogrel 75mg tablet PO SCH (10:25)
[2022-04-20] MEDS: verapamil SR 120mg (sust. release) tab PO SCH (10:25)
[2022-04-20] MEDS: pantoprazole 40mg Tablet.DR PO SCH (10:25)
[2022-04-20 11:00] VITALS: BP 146/84
--- NOTE | 2022-04-20 15:11 | NUR ---
Pt discharged to home from the hospital. Discharge medications were picked up by the pt's significant other prior to discharge. Discharge paperwork was reviewed with both the pt and their significant other. PIV and telemetry were removed prior to discharge. All belongings were returned at the time of discharge.
--- NOTE | 2022-04-26 15:34 | NUR ---
Case Management DC follow up:Spoke with Patient via telephone.S/P: Patient Reports:. Denies chest pain, SOB, Resp distress, weakness, retroperitoneal pain,hematuria,hematochezia,melena, unexplained bruising, fever, chills.Verbalized Home Health nurse in today to change dressing.Verbalizes compliance with aftercare.Verbalizes understanding of s/s that warrant a 9-11/ER visit for further evaluation. Verbalizes understanding of new Rx:, why prescribed;continues/resumes current Rx as ordered.Verbalized he has scheduled follow up with his PCP ; however, acknowledges need to schedule follow up appointment with ; declines assistance. Verbalizes the Staff were really nice, and they need a raise.Needs met, questions/concerns addressed at DC.No further questions/concerns regarding recent hospital stay and /or DC status.
[2022-05-01] MEDS ORDERED: CLOP75TA34 PO (18:37)
[2022-05-02] MEDS ORDERED: HYDR-3965 PO (11:06)
== END 2022-04-20 14:40 | disposition home health service (06) | DRG 246 ==
LOC: SSTAY O 09:59 → PACU 10:00 → CICU 2S 23:55 → PCU 3S 04-17 09:55
PROVIDERS: ADMIT Surgery; ATTEND Internal Medicine Cardiovascular Disease
PROC: 027034Z Dilation of Coronary Artery, One Artery with Drug-eluting Intraluminal Device, Percutaneous Approach (ICD-10-PCS; 2022-04-14)
PROC: 0W3H0ZZ Control Bleeding in Retroperitoneum, Open Approach (ICD-10-PCS; 2022-04-14)
PROC: B2111ZZ Fluoroscopy of Multiple Coronary Arteries using Low Osmolar Contrast (ICD-10-PCS; 2022-04-14)
PROC: B2151ZZ Fluoroscopy of Left Heart using Low Osmolar Contrast (ICD-10-PCS; 2022-04-14)
PROC: BW211ZZ Computerized Tomography (CT Scan) of Abdomen and Pelvis using Low Osmolar Contrast (ICD-10-PCS; 2022-04-14)
PROC: 4A023N7 Measurement of Cardiac Sampling and Pressure, Left Heart, Percutaneous Approach (ICD-10-PCS; principal; 2022-04-14 21:50)
PROC: 5A09357 Assistance with Respiratory Ventilation, Less than 24 Consecutive Hours, Continuous Positive Airway Pressure (ICD-10-PCS; 2022-04-15)
PROC: 30233N1 Transfusion of Nonautologous Red Blood Cells into Peripheral Vein, Percutaneous Approach (ICD-10-PCS; 2022-04-15)
PROC: 5A1935Z Respiratory Ventilation, Less than 24 Consecutive Hours (ICD-10-PCS; 2022-04-15)
PROC: 0BH17EZ Insertion of Endotracheal Airway into Trachea, Via Natural or Artificial Opening (ICD-10-PCS; 2022-04-15)
PROC: 0WP Anatomical Regions, General, Removal (ICD-10-PCS; 2022-04-16)
DX: I25.10 Atherosclerotic heart disease of native coronary artery without angina pectoris (principal); K66.1 Hemoperitoneum; J96.00 Acute respiratory failure, unspecified whether with hypoxia or hypercapnia; N17.9 Acute kidney failure, unspecified; D62 Acute posthemorrhagic anemia; Z20.822 Contact with and (suspected) exposure to COVID-19; E88.09 Other disorders of plasma-protein metabolism, not elsewhere classified; D63.8 Anemia in other chronic diseases classified elsewhere; E03.9 Hypothyroidism, unspecified; E11.65 Type 2 diabetes mellitus with hyperglycemia; I48.0 Paroxysmal atrial fibrillation; Z79.899 Other long term (current) drug therapy
CPT/HCPCS: 93458; C9600; 36415; 36430; 36600; 71045; 74177; 80048; 80053; 81001; 82575; 82803; 82948; 83036; 83605; 83735; 83880; 84100; 84300; 84443; 84478; 85018; 85025; 85610; 85730; 86885; 86900; 86901; 86920; 87070; 87081; 87635; 93005; 94002; 94003; 94760; 97116; 97530; 99152; 99153; A4215; A4618; A4620; A5120; A6253; A6258; A6446; A7000; C1725; C1751; C1757; C1758; C1760; C1769; C1874; C1894; C9113; C9803; G0378; J0131; J0690; J1100; J1644; J1650; J1815; J1885; J2250; J2370; J2405; J2704; J3010; J3490; J7030; J7040; J7050; J7070; J7120; P9016; P9045; Q0163; Q9967

== ENCOUNTER 2024-07-18 07:38 | Day surgery (SDC) | payer MEDICARE, BC ==
[~2024-07-18] VITALS: Ht 185.4 cm; Wt 91.7 kg
[2024-07-18] VITALS (11 sets, daily range): BP systolic 123–164; BP diastolic 61–89; PULSE 54–71; RESP 12–18; TEMP 97.8; O2SAT 94–99
[~2024-07-18 07:38] MED LIST: CLOP75TA34 PO; LEVO50TA8 PO; RIVA20TA PO; SIMV-45 PO; VERA240C3 PO
[2024-07-18 08:58] LABS: ALBUMIN 3.9 G/DL (3.4-5.0); ANION GAP 11 (8-16); BASOPHILS # (AUTO) 0.1 X10'3 (0-0.2); BASOPHILS % (AUTO) 1.2 % (0-1); BLOOD UREA NITROGEN 18 MG/DL (7-18); BUN/CREATININE RATIO 16.8 (10.0-20.0); CALCIUM 9.1 MG/DL (8.5-10.1); CHLORIDE 104 MMOL/L (99-107); CREATININE 1.07 MG/DL (0.60-1.10); EOSINOPHILS # (AUTO) 0.5 X10'3 (0-0.9); GLUCOSE 85 MG/DL (70-104); HEMATOCRIT 45.7 % (42.0-52.0); HEMOGLOBIN 15.6 g/dl (14.0-17.9); LYMPHOCYTES # (AUTO) 1.3 X10'3 (1.1-4.8); LYMPHOCYTES % (AUTO) 21.4 % (21-51); MEAN CORPUSCULAR HEMOGLOBIN 32.9 PG (27.0-31.0); MEAN CORPUSCULAR HGB CONC 34.1 g/dL (33.0-36.5); MEAN CORPUSCULAR VOLUME 96.4 FL (78-98); MEAN PLATELET VOLUME 7.9 FL (7.4-10.4); MONOCYTES # (AUTO) 0.4 X10'3 (0-0.9); MONOCYTES % (AUTO) 6.7 % (2-12); NEUTROPHILS # (AUTO) 3.7 X10'3 (1.8-7.7); NEUTROPHILS % (AUTO) 62.7 % (42-75); PLATELET COUNT 175 X10'3 (140-440); POTASSIUM 4.3 MMOL/L (3.5-5.1); RED BLOOD COUNT 4.74 X10'6 (4.70-6.10); RED CELL DISTRIBUTION WIDTH 13.3 % (11.5-14.5); SODIUM 140 MMOL/L (135-145); TOTAL CARBON DIOXIDE 24.9 MMOL/L (24-32); eCRCL 64 ML/MIN; eGFR 67 ML/MIN
[2024-07-18 09:09] LABS: PROTHROMBIN TIME 10.7 SECONDS (9.0-12.0)
[2024-07-18] MEDS: diphenhydrAMINE 25mg capsule PO PRN (09:33)
[2024-07-18] MEDS: sodium bicarbonate 1meq/ml syr 150 ML in dextrose 5%-water 1,000 ML IV ONE (09:33)
[2024-07-18] MEDS: normal saline 1,000 ML IV SCH (09:33)
[2024-07-18] MEDS ORDERED: LIDOcaine 1% 30ml preserv. free vial ONE (10:53)
[2024-07-18] MEDS ORDERED: midazolam 1 mg/ML 2ml injection ONE ×2 (10:53→11:51)
[2024-07-18] MEDS ORDERED: fentaNYL/PF 50MCG/1 ML 2ML syringe ONE (10:53)
[2024-07-18] MEDS ORDERED: iohexol 350MG/ML 100ml bottle IV ONE (10:54)
[2024-07-18] MEDS ORDERED: iohexol 350 MG/ML 50ML vial IV ONE (10:54)
[2024-07-18] MEDS ORDERED: heparin 1,000unit/ml 10ml vial 10 ML ONE (10:54)
[2024-07-18] MEDS ORDERED: ondansetron/PF 4mg/2ml inj IV PRN (13:40)
[2024-07-18] MEDS ORDERED: proCHLORperazine 10 MG/2 ml inj IV PRN (13:40)
[2024-07-18] MEDS ORDERED: HYDROcodone/acetaminophen 5mg/325mg tablet PO PRN (13:40)
[2024-07-18] MEDS ORDERED: HYDROcodone/acetaminophen 10/325mg tab PO PRN (13:40)
== END 2024-07-18 17:00 | disposition home or self-care (01) ==
LOC: SSTAY O 07:38
PROVIDERS: ATTEND Internal Medicine Cardiovascular Disease
DX: I25.118 Atherosclerotic heart disease of native coronary artery with other forms of angina pectoris (principal); I35.0 Nonrheumatic aortic (valve) stenosis; I10 Essential (primary) hypertension; E78.5 Hyperlipidemia, unspecified; E03.9 Hypothyroidism, unspecified; I48.0 Paroxysmal atrial fibrillation; J45.909 Unspecified asthma, uncomplicated; I65.22 Occlusion and stenosis of left carotid artery; Z79.02 Long term (current) use of antithrombotics/antiplatelets; Z79.890 Hormone replacement therapy; Z79.899 Other long term (current) drug therapy; Z95.5 Presence of coronary angioplasty implant and graft; Z98.890 Other specified postprocedural states
CPT/HCPCS: 36415; 80048; 83735; 85025; 85610; 93005; 93460; 99152; 99153; A6258; C1725; C1751; C1760; C1769; C1894; J1644; J2001; J2250; J3010; J3490; J7030; J7070; Q0163; Q9967; Z7610

== ENCOUNTER 2024-07-24 09:23 | Outpatient (CLI) | payer MEDICARE, BC ==
[~2024-07-24 09:23] MED LIST changes: -CLOP75TA34 PO; +IODIXANOL 320 MG/ML INFUS..BTL 100ML IV ONE
[2024-07-24 09:56] LABS: BASOPHILS # (AUTO) 0.1 X10'3 (0-0.2); BASOPHILS % (AUTO) 1.2 % (0-1); EOSINOPHILS # (AUTO) 0.4 X10'3 (0-0.9); EOSINOPHILS % (AUTO) 6.8 % (0-6); HEMATOCRIT 43.7 % (42.0-52.0); LYMPHOCYTES # (AUTO) 1.1 X10'3 (1.1-4.8); LYMPHOCYTES % (AUTO) 20.2 % (21-51); MEAN CORPUSCULAR HEMOGLOBIN 32.9 PG (27.0-31.0); MEAN CORPUSCULAR HGB CONC 34.4 g/dL (33.0-36.5); MEAN CORPUSCULAR VOLUME 95.6 FL (78-98); MEAN PLATELET VOLUME 7.4 FL (7.4-10.4); MONOCYTES # (AUTO) 0.4 X10'3 (0-0.9); MONOCYTES % (AUTO) 6.8 % (2-12); NEUTROPHILS # (AUTO) 3.7 X10'3 (1.8-7.7); PLATELET COUNT 176 X10'3 (140-440); RED BLOOD COUNT 4.57 X10'6 (4.70-6.10); RED CELL DISTRIBUTION WIDTH 13.2 % (11.5-14.5); WHITE BLOOD COUNT 5.7 X10'3 (4.5-11.0)
[2024-07-24 10:07] LABS: APTT 37 SECONDS (22-32); INR 1.2 INR; PROTHROMBIN TIME 12.3 SECONDS (9.0-12.0)
[2024-07-24 10:15] LABS: ALANINE AMINOTRANSFERASE 23 U/L (12-78); ALBUMIN 3.6 G/DL (3.4-5.0); ALKALINE PHOSPHATASE 79 IU/L (46-116); ANION GAP 6 (8-16); ASPARTATE AMINO TRANSFERASE 20 U/L (10-37); BILIRUBIN,TOTAL 0.7 MG/DL (0.1-1.0); BLOOD UREA NITROGEN 20 MG/DL (7-18); BUN/CREATININE RATIO 16.8 (10.0-20.0); CALCIUM 9.2 MG/DL (8.5-10.1); CHLORIDE 105 MMOL/L (99-107); CREATININE 1.19 MG/DL (0.60-1.10); GLUCOSE 90 MG/DL (70-104); POTASSIUM 4.5 MMOL/L (3.5-5.1); PRO BRAIN NATRIURETIC PEPTIDE 926 PG/ML (0-450); SODIUM 140 MMOL/L (135-145); TOTAL CARBON DIOXIDE 29.2 MMOL/L (24-32); TOTAL PROTEIN 7.2 G/DL (6.4-8.2); eGFR 59 ML/MIN
[2024-07-24 12:07] VITALS: PULSE 72; RESP 12; O2SAT 99
== END 2024-07-24 23:59 | disposition home or self-care (01) ==
LOC: VAS 09:23
PROVIDERS: ATTEND Internal Medicine Cardiovascular Disease
DX: I65.23 Occlusion and stenosis of bilateral carotid arteries (principal); I35.0 Nonrheumatic aortic (valve) stenosis; R06.02 Shortness of breath; K44.9 Diaphragmatic hernia without obstruction or gangrene; I51.7 Cardiomegaly; J84.10 Pulmonary fibrosis, unspecified
CPT/HCPCS: 36415; 71046; 71275; 74174; 75572; 80053; 83880; 85025; 85610; 85730; 93880; 94010; 94727; 94729; 94760; Q9967

== ENCOUNTER 2024-08-08 11:39 | Outpatient (CLI) | payer MEDICARE, BC ==
[~2024-08-08] VITALS: Ht 177.8 cm; Wt 89.9 kg
[2024-08-08 11:57] VITALS: BP 137/73; PULSE 71; RESP 16; TEMP 96.1; O2SAT 100
== END 2024-08-08 23:59 | disposition home or self-care (01) ==
LOC: TAVR 11:39
PROVIDERS: ATTEND Internal Medicine Cardiovascular Disease
DX: I08.0 Rheumatic disorders of both mitral and aortic valves (principal); R06.02 Shortness of breath; I65.29 Occlusion and stenosis of unspecified carotid artery; Z48.812 Encounter for surgical aftercare following surgery on the circulatory system; I48.91 Unspecified atrial fibrillation; I10 Essential (primary) hypertension; E78.5 Hyperlipidemia, unspecified; E03.9 Hypothyroidism, unspecified; J45.909 Unspecified asthma, uncomplicated; I25.10 Atherosclerotic heart disease of native coronary artery without angina pectoris; Z95.5 Presence of coronary angioplasty implant and graft; Z95.2 Presence of prosthetic heart valve
CPT/HCPCS: Q9967

== ENCOUNTER 2024-09-11 05:56 | Inpatient (IN) | payer MEDICARE, BC ==
[2024-09-04 10:30] LABS: BILIRUBIN,URINE NEGATIVE (Neg); CLARITY,URINE CLEAR (Clear); COLOR,URINE YELLOW (Yellow); GLUCOSE, URINE NEGATIVE (Neg); KETONES,URINE NEGATIVE (Neg); LEUKOCYTE ESTERASE ,URINE NEGATIVE (Neg); NITRITES, URINE NEGATIVE (Neg); OCCULT BLOOD,URINE SMALL (Neg); PROTEIN,URINE NEGATIVE (Neg); UROBILINOGEN,URINE 0.2 E.U/dL (0.2-1.0)
[2024-09-04 10:32] LABS: UA COLLECTION TYPE CLN CATCH MIDSTREAM
[2024-09-04 10:38] LABS: BASOPHILS % (AUTO) 0.9 % (0-1); EOSINOPHILS # (AUTO) 0.5 X10'3 (0-0.9); EOSINOPHILS % (AUTO) 9.8 % (0-6); LYMPHOCYTES # (AUTO) 1.2 X10'3 (1.1-4.8); MEAN CORPUSCULAR HEMOGLOBIN 32.5 PG (27.0-31.0); MEAN CORPUSCULAR HGB CONC 33.7 g/dL (33.0-36.5); MEAN CORPUSCULAR VOLUME 96.4 FL (78-98); MEAN PLATELET VOLUME 7.8 FL (7.4-10.4); MONOCYTES # (AUTO) 0.4 X10'3 (0-0.9); MONOCYTES % (AUTO) 7.5 % (2-12); NEUTROPHILS # (AUTO) 2.9 X10'3 (1.8-7.7); NEUTROPHILS % (AUTO) 57.8 % (42-75); PRE OP HEMATOCRIT 43.5 % (42.0-52.0); PRE OP HEMOGLOBIN 14.7 g/dL (14.0-17.9); PRE OP PLATELET COUNT 173 X10'3 (140-440); PRE OP WHITE BLOOD COUNT 5.1 10'3 (4.8-10.8); RED BLOOD COUNT 4.51 X10'6 (4.70-6.10); RED CELL DISTRIBUTION WIDTH 13.6 % (11.5-14.5); SQUAMOUS EPITHELIAL CELL,UR FEW /LPF (FEW); WBC,URINE NONE SEEN /HPF (0-4)
[2024-09-04 10:39] LABS: BACTERIA,URINE NONE SEEN /HPF (Neg)
[2024-09-04 10:52] LABS: PRE OP INR 1.1 INR; PRE OP PROTIME 11.4 SECONDS (9.0-12.0)
[2024-09-04 11:02] LABS: ALBUMIN 3.6 G/DL (3.4-5.0); ALBUMIN/GLOBULIN RATIO 1.1 (1.1-1.5); ALKALINE PHOSPHATASE 90 IU/L (46-116); BLOOD UREA NITROGEN 13 MG/DL (7-18); BUN/CREATININE RATIO 13.3 (10.0-20.0); CALCIUM 8.7 MG/DL (8.5-10.1); CHLORIDE 106 MMOL/L (99-107); CREATININE 0.98 MG/DL (0.60-1.10); PRE OP ALT 26 U/L (30-65); PRE OP ANION GAP 6 (8-16); PRE OP AST 20 U/L (10-37); PRE OP BILIRUB, TOTAL 0.6 MG/DL (0.0-1.0); PRE OP GLUCOSE 93 MG/DL (70-104); PRE OP POTASSIUM 4.3 MMOL/L (3.4-5.1); PRE OP SODIUM 139 MMOL/L (135-145); PRO BRAIN NATRIURETIC PEPTIDE 1153 PG/ML (0-450); TOTAL CARBON DIOXIDE 26.6 MMOL/L (24-32); eGFR 74 ML/MIN
[~2024-09-11] VITALS: Ht 182.9 cm; Wt 91.2 kg
[2024-09-11] VITALS (31 sets, daily range): BP systolic 119–182; BP diastolic 57–91; PULSE 42–104; RESP 12–20; TEMP 97.7; O2SAT 95–99
[2024-09-11] MEDS: cefazolin 2gm/D5W 100mL 100 ML IV ONE (05:30)
[2024-09-11] MEDS: phenylephrine inj 50 MG in normal saline 250ml IV solN IV SCH (05:30)
[~2024-09-11 05:56] MED LIST changes: +ALBU8HFA INH; +FLUT1BLS13 INH; -IODIXANOL 320 MG/ML INFUS..BTL 100ML IV ONE; +MULT-1085 PO; +PSYL575P22 PO; +SENN-25 PO; +ondansetron/PF 4mg/2ml inj IV PRN
[2024-09-11] MEDS: famotidine 20mg tablet PO ONE (07:20)
[2024-09-11] MEDS: vancomycin 1,500 MG in NS 300ml IV soln IV ONE (07:21)
[2024-09-11] MEDS: aspirin 325mg tablet PO ONE (07:21)
[2024-09-11] MEDS: ringers solution, lacted 1,000 ML IV SCH ×2 (07:22→21:43)
[2024-09-11] MEDS ORDERED: meperidine/PF 25mg/ml syringe IV PRN ×3 (07:50)
[2024-09-11] MEDS ORDERED: proCHLORperazine 10 MG/2 ml inj IV PRN ×2 (07:50→09:55)
[2024-09-11] MEDS ORDERED: morphine 4 MG/ML inj SYRINge IV PRN (07:50)
[2024-09-11] MEDS ORDERED: morphine 2 MG/ML inj. syringe IV PRN (07:50)
[2024-09-11] MEDS ORDERED: ondansetron/PF 4mg/2ml inj IV PRN ×2 (07:50→09:55)
[2024-09-11] MEDS: protamine sulfate 10mg/ml inj. ONE ×2 (07:53→08:00)
[2024-09-11] MEDS ORDERED: heparin 1,000 UNITS/NS 500ml 1,500 ML ONE (07:55)
[2024-09-11] MEDS ORDERED: LIDOcaine 1% (10mg/ml) 2ml vial ONE (07:55)
[2024-09-11] MEDS ORDERED: iohexol 350MG/ML 100ml bottle IV ONE ×2 (07:55→09:30)
[2024-09-11] MEDS ORDERED: sevoflurane 250ml liquid IH ONE (08:36)
[2024-09-11] MEDS ORDERED: midazolam 1 mg/ML 2ml injection ONE (08:38)
[2024-09-11] MEDS ORDERED: fentaNYL/PF 50MCG/1 ML 2ML syringe ONE (08:38)
[2024-09-11] MEDS ORDERED: heparin 1,000unit/ml 10ml vial 10 ML ONE (08:49)
[2024-09-11] MEDS ORDERED: propofol inj 20 ML IV ONE (08:49)
[2024-09-11] MEDS ORDERED: iohexol 350 MG/ML 50ML vial IV ONE (09:30)
[2024-09-11] MEDS ORDERED: potassium Cl 20mEq/100mL bag 100 ML IV PRN (09:55)
[2024-09-11] MEDS ORDERED: diphenhydrAMINE 25mg capsule PO PRN (09:55)
[2024-09-11] MEDS ORDERED: potassium Cl 20 mEq SR tablet PO PRN (09:55)
[2024-09-11] MEDS ORDERED: potassium CL 10mEq/100ml bag 100 ML IV PRN (09:55)
[2024-09-11] MEDS ORDERED: pantoprazole 40mg Tablet.DR PO PRN (09:55)
[2024-09-11] MEDS ORDERED: docusate sod 100mg capsule PO PRN (09:55)
[2024-09-11] MEDS ORDERED: potassium Cl 40MEQ/270ML bag 250 ML IV PRN (09:55)
[2024-09-11] MEDS ORDERED: ALPRAZolam 0.25mg tablet PO PRN (09:55)
[2024-09-11] MEDS ORDERED: labetalol 20mg/4ml (5mg/ml) syringe IV PRN (09:55)
[2024-09-11] MEDS ORDERED: magnesium sulf-water 2g/50mL 50 ML IV PRN (09:55)
[2024-09-11] MEDS ORDERED: albuterol 2.5 MG/3 ML nebule NEB PRN (15:30)
[2024-09-11] MEDS: sod chloride 0.9% 10ml flush syringe IV SCH (15:59)
[2024-09-11] MEDS: ceFAZolin 1GM/D5W- ADD-VANTAGE 50 ML IV SCH (16:00)
[2024-09-11] MEDS ORDERED: LIDOcaine 1% 30ml preserv. free vial ONE (17:08)
[2024-09-11] MEDS: hydrALAZINE 20mg/ml inj. IV PRN (18:39)
[2024-09-11] MEDS: normal saline 1000ml 1,000 ML IV SCH (18:55)
[2024-09-11] MEDS: acetaminophen 325mg tablet PO PRN (19:15)
[2024-09-11] MEDS: sennosides 8.6mg tablet PO SCH (20:11)
[2024-09-11] MEDS: vancomycin/NS 1 GM ADD-VANTAGE 250 ML IV SCH (20:11)
[2024-09-11] MEDS: HYDROcodone/acetaminophen 5mg/325mg tablet PO PRN (20:12)
[2024-09-11] MEDS: nitroPRUSSIDE (NIPRIDE) (200MCG/ML) 100ML Drip IV SCH (20:30)
[2024-09-11] MEDS: FLUTICASONE PROPION IH SCH (21:00)
[2024-09-11] MEDS: [UNRECOGNIZED DRUG - OTHER] IH SCH (21:00)
[2024-09-11] MEDS: SALMETEROL IH SCH (21:00)
[2024-09-11] MEDS: lisinopril 20mg tablet PO ONE (21:03)
[2024-09-11] MEDS: simvastatin 20mg tablet PO SCH (21:52)
[2024-09-12] VITALS (22 sets, daily range): BP systolic 124–161; BP diastolic 51–79; PULSE 50–98; RESP 11–22; O2SAT 93–99
[2024-09-12 03:42] LABS: BASOPHILS % (AUTO) 0.6 % (0-1); EOSINOPHILS % (AUTO) 0.4 % (0-6); HEMATOCRIT 43.5 % (42.0-52.0); HEMOGLOBIN 14.9 g/dl (14.0-17.9); LYMPHOCYTES # (AUTO) 0.5 X10'3 (1.1-4.8); LYMPHOCYTES % (AUTO) 6.6 % (21-51); MEAN CORPUSCULAR HEMOGLOBIN 32.9 PG (27.0-31.0); MEAN CORPUSCULAR HGB CONC 34.3 g/dL (33.0-36.5); MEAN CORPUSCULAR VOLUME 96.1 FL (78-98); MEAN PLATELET VOLUME 8.1 FL (7.4-10.4); MONOCYTES # (AUTO) 0.4 X10'3 (0-0.9); MONOCYTES % (AUTO) 5.3 % (2-12); NEUTROPHILS # (AUTO) 7.1 X10'3 (1.8-7.7); NEUTROPHILS % (AUTO) 87.1 % (42-75); PLATELET COUNT 137 X10'3 (140-440); RED BLOOD COUNT 4.53 X10'6 (4.70-6.10); RED CELL DISTRIBUTION WIDTH 13.5 % (11.5-14.5); WHITE BLOOD COUNT 8.2 X10'3 (4.5-11.0)
[2024-09-12 04:05] LABS: ALANINE AMINOTRANSFERASE 23 U/L (12-78); ALBUMIN/GLOBULIN RATIO 0.9 (1.1-1.5); ALKALINE PHOSPHATASE 65 IU/L (46-116); ANION GAP 10 (8-16); ASPARTATE AMINO TRANSFERASE 28 U/L (10-37); BILIRUBIN,TOTAL 0.9 MG/DL (0.1-1.0); BLOOD UREA NITROGEN 9 MG/DL (7-18); BUN/CREATININE RATIO 10.1 (10.0-20.0); CALCIUM 8.2 MG/DL (8.5-10.1); CHLORIDE 103 MMOL/L (99-107); CREATININE 0.89 MG/DL (0.60-1.10); GLUCOSE 114 MG/DL (70-104); MAGNESIUM 1.8 MG/DL (1.5-2.4); POTASSIUM 3.7 MMOL/L (3.5-5.1); PRO BRAIN NATRIURETIC PEPTIDE 2008 PG/ML (0-450); SODIUM 136 MMOL/L (135-145); TOTAL CARBON DIOXIDE 22.7 MMOL/L (24-32); TOTAL PROTEIN 6.2 G/DL (6.4-8.2); eCRCL 75 ML/MIN; eGFR 83 ML/MIN
[2024-09-12] MEDS: magnesium sulf-water 4G/100mL 100 ML IV PRN (05:08)
[2024-09-12] MEDS: levoTHYROXINE 25mcg tablet PO SCH (07:21)
[2024-09-12] MEDS: psyllium seed 5.8 gm packet (sugar-free) PO SCH (07:23)
[2024-09-12] MEDS ORDERED: midazolam 1 mg/ML 2ml injection ONE ×3 (08:47→10:29)
[2024-09-12] MEDS ORDERED: fentaNYL/PF 50MCG/1 ML 2ML syringe ONE ×2 (08:47→10:29)
[2024-09-12] MEDS ORDERED: LIDOcaine 1% W/epiNEPHrine 1:100,000 20ml vial ONE (08:47)
[2024-09-12] MEDS ORDERED: iohexol 350 MG/ML 50ML vial IV ONE ×2 (08:47→10:51)
[2024-09-12] MEDS: potassium Cl 40MEQ/1/2NS 520ml 520 ML IV PRN (09:17)
[2024-09-12] MEDS ORDERED: LIDOcaine 1% 30ml preserv. free vial ONE (09:44)
[2024-09-12] MEDS ORDERED: heparin 1,000unit/ml 10ml vial 10 ML ONE (09:44)
[2024-09-12] MEDS ORDERED: heparin 1,000 UNITS/NS 500ml 1,500 ML ONE (09:44)
[2024-09-12] MEDS ORDERED: heparin 1,000 UNITS/NS 500ml 500 ML ONE (10:11)
[2024-09-12] MEDS: normal saline 1000ml 1,000 ML IV SCH (11:51)
[2024-09-13] MEDS ORDERED: rivaroxaban 20mg tablet PO SCH (21:00)
== END 2024-09-12 17:15 | disposition home or self-care (01) | DRG 266 ==
LOC: PAS IN 05:56 → CICU 2S 17:53
PROVIDERS: ADMIT Internal Medicine Cardiovascular Disease; ATTEND Internal Medicine Cardiovascular Disease
PROC: 02HK3NZ Insertion of Intracardiac Pacemaker into Right Ventricle, Percutaneous Approach (ICD-10-PCS; 2024-09-11)
PROC: B41D1ZZ Fluoroscopy of Aorta and Bilateral Lower Extremity Arteries using Low Osmolar Contrast (ICD-10-PCS; 2024-09-11)
PROC: 02RF38Z Replacement of Aortic Valve with Zooplastic Tissue, Percutaneous Approach (ICD-10-PCS; principal; 2024-09-11 08:36)
DX: I35.0 Nonrheumatic aortic (valve) stenosis (principal); Z00.6 Encounter for examination for normal comparison and control in clinical research program; I50.31 Acute diastolic (congestive) heart failure; I48.20 Chronic atrial fibrillation, unspecified; I11.0 Hypertensive heart disease with heart failure; E78.5 Hyperlipidemia, unspecified; E03.9 Hypothyroidism, unspecified; I25.10 Atherosclerotic heart disease of native coronary artery without angina pectoris; J45.909 Unspecified asthma, uncomplicated; Z79.01 Long term (current) use of anticoagulants
CPT/HCPCS: 33210; 33274; 33361; 36415; 71045; 71046; 76937; 80053; 81001; 82948; 83735; 83880; 84443; 85025; 85347; 85610; 85730; 86885; 86900; 86901; 86920; 87081; 93005; 93308; 99152; 99153; A4618; A6258; A6449; C1756; C1760; C1769; C1786; C1894; G0378; J0360; J0690; J1644; J2250; J2371; J2704; J2720; J3010; J3370; J3475; J3480; J3490; J7030; J7040; J7050; J7120; Q9967

== ENCOUNTER 2025-10-26 11:27 | Outpatient (CLI) | payer MEDICARE, BC ==
[~2025-10-26 11:27] MED LIST changes: -SENN-25 PO; +SENN-398 PO; -VERA240C3 PO; +[UNRECOGNIZED DRUG - CODE] PO; -ondansetron/PF 4mg/2ml inj IV PRN
--- NOTE | 2025-10-27 17:41 | CARDIOLOGY REPORT ---
APPROVED REPORT EXAM: Comprehensive 2D, Doppler, and color-flow Echocardiogram. Patient Location: OUT-PATIENT Blood Pressure: 139/74 mmHg Heart Rate: 64 bpm Rhythm: ATRIAL FIBRILLATION w/OCCASIONAL PACING Indications ONE MONTH FOLLOW-UP TAVR 26 mm Coats Emmanuel 3 Ultra RESILIA Bioprosthetic TAVR Adjunct Instructor Of Women'S Studies: Jerri Krause MD Previous echo 09/12/24 [facility] EF 70%; MOIZ 3.36; Peak v 2.46; Grad ; mild MR, mild TR) 2D Dimensions IVSd 1.2 (0.7-1.1cm) LVDd 4.8 cm PWd 1.2 (0.7-1.1cm) IVSs 1.7 (0.8-1.2cm) LVDs 2.9 (2.5-4.0cm) PWs 1.6 (0.8-1.2cm) LVOT Diameter 2.63 (1.8-2.4cm) LVEF(%) 68.5 (>50%) Ao Asc Diam. 3.16 cm FS (%) 38.3 % SV 72.0 ml M-Mode Dimensions IVSd 1.20 (0.7-1.1cm) LVDd 5.30 (4.0-5.6cm) PWd 1.32 (0.7-1.1cm) IVSs 1.68 cm LVDs 3.34 (2.0-3.8cm) FS (%) 37 % PWs 1.59 cm ESV(Teich) 45.4 ml LVEF(%) 66 (>50%) Aortic Valve AoV Peak Jalyen. 239.7 cm/s AoV VTI 47.5 cm AO Peak GR. 23.0 mmHg AO Mean GR. 13 mmHg LVOT VTI 27.13 cm LVOT Peak Jaylen. 120.0 cm/s MOIZ (VTI) 3.11 cm2 Mitral Valve MV PHT 48 ms MVA (PHT) 4.62 cm2 Tricuspid Valve TR P. Velocity 286 cm/s RAP ESTIMATE 10 mmHg TR Peak Gr. 33 mmHg RVSP 43 mmHg LEFT VENTRICLE Normal LV size and function. Mild concentric hypertrophy. Overall LVEF is 60-65%. RIGHT VENTRICLE RV is moderately dilated with normal systolic function. RVSP is estimated at 43 mmHg. ATRIA Severe biatrial dilation. AORTIC VALVE 26 mm Coats Emmanuel 3 Ultra Resilia bioprosthetic TAVR appears well seated with normal function. Mild (2+) paravalvular leak present at 2 and 8 o'clock in TTE SAX BASE. MOIZ is measured at 3.11 cmsq. Peak / mean gradients of 23 / 13 mmHG. Peak velocity is measured at 2.39 m/sec. MITRAL VALVE Mild MV annular calcification without stenosis. Mild regurgitation. TRICUSPID VALVE TV appears structurally normal with moderate to severe regurgitation. PULMONIC VALVE Normal PV without stenosis, mild insufficiency. GREAT VESSELS Aortic root is normal in size. Ascending aorta is normal in size. PERICARDIUM Normal pericardium. No effusion. Other Information Study Quality: Adequate Conclusion Overall LVEF is 60-65%. Normal LV size and function. Mild concentric hypertrophy. RV is moderately dilated with normal systolic function. RVSP is estimated at 43 mmHg. 26 mm Coats Emmanuel 3 Ultra Resilia bioprosthetic TAVR appears well seated with normal function. Mild (2+) paravalvular leak present at 2 and 8 o'clock in TTE SAX BASE. MOIZ is measured at 3.11 cmsq. Peak / mean gradients of 23 / 13 mmHG. Peak velocity is measured at 2.39 m/sec. Mild MV annular calcification without stenosis. Mild regurgitation. TV appears structurally normal with moderate to severe regurgitation. Estimated PA systolic pressure of 43 mm of mercury Normal PV without stenosis, mild insufficiency. Normal pericardium. No effusion.
== END 2025-10-26 23:59 | disposition home or self-care (01) ==
LOC: CARD DIAG 11:27
PROVIDERS: ATTEND Internal Medicine Cardiovascular Disease
DX: Z48.812 Encounter for surgical aftercare following surgery on the circulatory system (principal); I08.8 Other rheumatic multiple valve diseases; Z95.2 Presence of prosthetic heart valve; Z98.890 Other specified postprocedural states
CPT/HCPCS: 93306